=== PATIENT | female | born 1990 | race Caucasian/White ===

== ENCOUNTER 2022-07-19 21:01 | Emergency (ER) | payer MEDICAID ==
[~2022-07-19] VITALS: Ht 167.6 cm; Wt 113.1 kg
[2022-07-19] MEDS ORDERED: IBUPROFEN 600MG TABLET PO STA (23:30)
[2022-07-19 23:49] VITALS: BP 158/108
[2022-07-19 23:54] LABS: CLARITY URINE CLOUDY (CLEAR); COLOR URINE YELLOW (YELLOW); KETONES URINE TRACE (NEGATIVE); LEUKOCYTE ESTERASE URINE 3+ (NEGATIVE); NITRITE URINE POSITIVE (NEGATIVE); OCCULT BLOOD URINE 2+ (NEGATIVE); PH URINE 5.5 (4.5-8.0); PROTEIN URINE 1+ (NEGATIVE); SPECIFIC GRAVITY URINE 1.023 (1.005-1.030)
[2022-07-20] MEDS ORDERED: LIDOCAINE HCL 1% 20ML VIAL (Pyxis) INJ INFIL NR
[2022-07-20] MEDS ORDERED: CEFTRIAXONE SODIUM 1 G/VIAL IM NR
[2022-07-20] MEDS ORDERED: METR-167 MT (01:39)
[2022-07-20] MEDS ORDERED: FLUC150T46 MT (01:39)
[2022-07-20] MEDS ORDERED: NAPR-681 PO (01:39)
[2022-07-20] MEDS ORDERED: DOXY-326 MT (01:39)
[2022-07-23 04:07] LABS: NEISSERIA GONORRHOEAE NAA Negative (Negative)
== END 2022-07-20 01:59 | disposition home or self-care (01) ==
LOC: ER 21:01
DX: N76.4 Abscess of vulva (principal); N76.0 Acute vaginitis; N39.0 Urinary tract infection, site not specified; I10 Essential (primary) hypertension
CPT/HCPCS: 81003; 87077; 87086; 87186; 87210; 87491; 87591; 96372; 99283; J0696; J3490

== ENCOUNTER 2022-12-04 20:31 | Emergency (ER) | payer OTHER ==
[~2022-12-04 20:31] MED LIST: DOXY-456 MT; FLUC150T46 MT; METR-167 MT; NAPR-681 PO
[2022-12-04 21:02] VITALS: PULSE 121
== END 2022-12-04 22:52 | disposition left against medical advice (07) ==
LOC: ER 20:31
DX: Z53.21 Procedure and treatment not carried out due to patient leaving prior to being seen by health care provider (principal)

== ENCOUNTER 2023-08-24 20:20 | Emergency (ER) | payer OTHER ==
[~2023-08-24] VITALS: Ht 167.6 cm; Wt 113.0 kg
[2023-08-24 21:24] VITALS: RESP 18; O2SAT 99
[2023-08-24] MEDS ORDERED: OFLO5DRO4 LEFT EAR (22:25)
[2023-08-24 23:06] VITALS: BP 175/90; PULSE 93; TEMP 97.9
== END 2023-08-24 23:08 | disposition home or self-care (01) ==
LOC: ER 21:09
DX: H60.92 Unspecified otitis externa, left ear (principal); I10 Essential (primary) hypertension; Z79.899 Other long term (current) drug therapy
CPT/HCPCS: 81025; 99282

== ENCOUNTER 2023-09-01 11:00 | Emergency (ER) | payer OTHER ==
[~2023-09-01] VITALS: Ht 167.6 cm; Wt 90.0 kg
[~2023-09-01 11:00] MED LIST changes: +OFLO5DRO4 LEFT EAR
[2023-09-01 11:03] VITALS: BP 154/117; O2SAT 100
[2023-09-01] MEDS: KETOROLAC 30MG/ML VIAL IM ONE (15:43)
[2023-09-01] MEDS ORDERED: IBUP-2029 MT (15:49)
[2023-09-01] MEDS ORDERED: METH-653 MT (15:49)
[2023-09-01 16:05] VITALS: PULSE 70; RESP 20; TEMP 98.5
== END 2023-09-01 16:06 | disposition home or self-care (01) ==
LOC: ER 11:00
DX: S83.91XA Sprain of unspecified site of right knee, initial encounter (principal); I10 Essential (primary) hypertension; Z79.899 Other long term (current) drug therapy; W18.39XA Other fall on same level, initial encounter; Y93.89 Activity, other specified; Y92.89 Other specified places as the place of occurrence of the external cause; Y99.8 Other external cause status
CPT/HCPCS: 73562; 96372; 99283; J1885; Z7610

== ENCOUNTER 2023-10-09 04:26 | Emergency (ER) | payer OTHER ==
[~2023-10-09] VITALS: Ht 167.6 cm; Wt 113.0 kg
[~2023-10-09 04:26] MED LIST changes: +IBUP-2029 MT; +METH-653 MT
[2023-10-09 04:38] VITALS: O2SAT 99
[2023-10-09] MEDS: ACETAMINOPHEN 325MG TABLET PO ONE (06:37)
[2023-10-09 06:46] LABS: CLARITY URINE TURBID (CLEAR); COLOR URINE ORANGE (YELLOW); GLUCOSE URINE NEGATIVE (NEGATIVE); KETONES URINE 3+ (NEGATIVE); LEUKOCYTE ESTERASE URINE 3+ (NEGATIVE); NITRITE URINE NEGATIVE (NEGATIVE); OCCULT BLOOD URINE 3+ (NEGATIVE); PROTEIN URINE 2+ (NEGATIVE)
[2023-10-09 07:06] LABS: RBC URINE TNTC /hpf (0-2)
[2023-10-09 07:07] LABS: BACTERIA URINE 1+; SQUAMOUS EPITHELIAL CELL URINE FEW /lpf (RARE/1+)
[2023-10-09] MEDS ORDERED: CEPH500C2 MT (07:29)
[2023-10-09 08:03] VITALS: BP 151/108; PULSE 96; RESP 16; TEMP 98.5
== END 2023-10-09 09:06 | disposition home or self-care (01) ==
LOC: ER 04:26
DX: N39.0 Urinary tract infection, site not specified (principal); M79.672 Pain in left foot; I10 Essential (primary) hypertension; Z79.899 Other long term (current) drug therapy
CPT/HCPCS: 73630; 81003; 81025; 99284